=== PATIENT | female | born 1935 | race Caucasian/White ===

== ENCOUNTER 2016-12-08 11:52 | Emergency (ER) | payer MEDICARE, OTHER ==
[2016-12-08] MEDS ORDERED: ALBUTEROL NEB 2.5 MG/3 ML INH STA (12:34)
[2016-12-08] MEDS ORDERED: ALBUTEROL NEB 2.5 MG/3 ML INH ONE (12:44)
[2016-12-08] MEDS ORDERED: IOPAMIDOL-300 100 ML VIAL IVP ONE (15:17)
[2016-12-08] MEDS ORDERED: CLINDAMYCIN 150 MG CAPSULE PO STA (16:09)
[2016-12-08] MEDS ORDERED: AMOXICILLIN 250 MG CAPSULE PO STA (16:09)
[2016-12-08] MEDS ORDERED: CLINDAMYCIN 150 MG CAPSULE PO ONE (16:24)
[2016-12-08] MEDS ORDERED: AMOXICILLIN 250 MG CAPSULE PO ONE (16:25)
== END 2016-12-08 16:50 | disposition home or self-care (01) ==
DX: J18.9 Pneumonia, unspecified organism (principal); Z79.82 Long term (current) use of aspirin
CPT/HCPCS: 36415; 71020; 71260; 80053; 83690; 85025; 87275; 87276; 93005; 93010; 94640; 99283; 99284; A9270; J7613; Q9967

== ENCOUNTER 2017-03-24 09:32 | Day surgery (SDC) | payer MEDICARE, OTHER ==
[~2017-03-24 09:32] MED LIST: PHENYLEPHRINE 2.5% OPHTH 2 ML DROPS ONE
[2017-03-24] MEDS ORDERED: LACTATED RINGERS 500 ML IV ONE (10:10)
[2017-03-24] MEDS ORDERED: KETOROLAC 0.45% OPHTH DROPS OPTH ONE (10:11)
[2017-03-24] MEDS ORDERED: PROPARACAINE 0.5% OPHTH DROPS 15 ML OPTH ONE (10:11)
[2017-03-24] MEDS ORDERED: CYCLOPENTOLATE 1% OPHTH DROPS 2 ML OPTH ONE (10:11)
[2017-03-24] MEDS ORDERED: PHENYLEPHRINE 2.5% OPHTH 2 ML DROPS OPTH ONE (10:11)
[2017-03-24] MEDS ORDERED: PROPOFOL 1000 MG/100 ML IV ONE (10:56)
[2017-03-24] MEDS ORDERED: hydrALAZINE INJ 20 MG/ML VIAL IVP ONE (10:56)
[2017-03-24] MEDS ORDERED: LIDOCAINE-MPF 2% 5 ML VIAL IM ONE (10:56)
[2017-03-24] MEDS ORDERED: MIDAZOLAM 2 MG/2 ML VIAL IVP ONE (10:56)
== END 2017-03-24 09:33 | disposition home or self-care (01) ==
PROC: 08RJ3JZ Replacement of Right Lens with Synthetic Substitute, Percutaneous Approach (ICD-10-PCS; principal; 2017-03-24 11:00)
DX: H25.811 Combined forms of age-related cataract, right eye (principal); Z90.49 Acquired absence of other specified parts of digestive tract; F41.9 Anxiety disorder, unspecified; F32.9 Major depressive disorder, single episode, unspecified; Z79.82 Long term (current) use of aspirin; E66.9 Obesity, unspecified; K21.9 Gastro-esophageal reflux disease without esophagitis; E78.00 Pure hypercholesterolemia, unspecified; I10 Essential (primary) hypertension; M19.90 Unspecified osteoarthritis, unspecified site; Z68.30 Body mass index [BMI] 30.0-30.9, adult
CPT/HCPCS: 66984; A9270; V2632

== ENCOUNTER 2017-04-07 08:04 | Day surgery (SDC) | payer MEDICARE, OTHER ==
[~2017-04-07 08:04] MED LIST changes: +MIDAZOLAM 2 MG/2 ML VIAL IVP ONE
[2017-04-07] MEDS ORDERED: KETOROLAC 0.45% OPHTH DROPS OPTH ONE (08:24)
[2017-04-07] MEDS ORDERED: CYCLOPENTOLATE 1% OPHTH DROPS 2 ML OPTH ONE (08:24)
[2017-04-07] MEDS ORDERED: PHENYLEPHRINE 2.5% OPHTH 2 ML DROPS OPTH ONE (08:24)
[2017-04-07] MEDS ORDERED: PROPARACAINE 0.5% OPHTH DROPS 15 ML OPTH ONE ×2 (08:24→10:04)
[2017-04-07] MEDS ORDERED: LACTATED RINGERS 500 ML IV ONE (08:25)
[2017-04-07] MEDS ORDERED: CHONDR SULF/HYALURONATE SYRINGE IO ONE (10:03)
[2017-04-07] MEDS ORDERED: EPINEPHrine 1 MG/ML AMP IVP ONE (10:03)
[2017-04-07] MEDS ORDERED: BRIMONIDINE 0.2% OPHTH DROPS 5 ML OPTH ONE (10:03)
[2017-04-07] MEDS ORDERED: BSS/LIDOCAINE/EPINEPHRINE 1 ML SYRINGE IO ONE ×2 (10:04)
[2017-04-07] MEDS ORDERED: TRIAMCIN/MOXIFLOX/VANCO 1 ML VIAL IO ONE ×2 (10:04)
[2017-04-07] MEDS ORDERED: TIMOLOL 0.5% OPHTH DROPS OPTH ONE (10:04)
== END 2017-04-07 08:05 | disposition home or self-care (01) ==
PROC: 08RK3JZ Replacement of Left Lens with Synthetic Substitute, Percutaneous Approach (ICD-10-PCS; principal; 2017-04-07 09:30)
DX: H25.812 Combined forms of age-related cataract, left eye (principal); F41.9 Anxiety disorder, unspecified; F32.9 Major depressive disorder, single episode, unspecified; K21.9 Gastro-esophageal reflux disease without esophagitis; E66.9 Obesity, unspecified; M06.9 Rheumatoid arthritis, unspecified; Z83.3 Family history of diabetes mellitus; Z82.49 Family history of ischemic heart disease and other diseases of the circulatory system; Z90.49 Acquired absence of other specified parts of digestive tract; Z88.5 Allergy status to narcotic agent; Z79.82 Long term (current) use of aspirin; Z98.41 Cataract extraction status, right eye; Z96.1 Presence of intraocular lens; Z68.30 Body mass index [BMI] 30.0-30.9, adult
CPT/HCPCS: 66984; A9270; V2632

== ENCOUNTER 2017-09-08 10:29 | Outpatient (CLI) | payer MEDICARE, OTHER ==
[2017-09-08 11:09] LABS: BASOPHILS % (AUTO) 0.6 %; EOSINOPHILS # (AUTO) 0.2 10^3/uL (0.0-0.7); EOSINOPHILS % (AUTO) 3.5 %; HCT - HEMATOCRIT 36.6 % (37.0-47.0); HGB - HEMOGLOBIN 12.3 g/dL (12.0-16.0); LYMPHOCYTES # (AUTO) 0.9 10^3/uL (1.5-3.5); LYMPHOCYTES % (AUTO) 17.2 %; MEAN CORPUSCULAR HEMOGLOBIN 30.1 pg (27.0-31.0); MEAN CORPUSCULAR HGB CONC 33.6 g/dL (32.0-36.0); MEAN CORPUSCULAR VOLUME 89.5 fL (81.0-99.0); MEAN PLATELET VOLUME 7.5 fL (7.9-10.8); MONOCYTES # (AUTO) 0.4 10^3/uL (0.0-1.0); MONOCYTES % (AUTO) 8.3 %; NEUTROPHILS # (AUTO) 3.6 10^3/uL (1.5-6.6); NEUTROPHILS % (AUTO) 70.4 %; NUCLEATED RED BLOOD CELLS AUTO 0.1 /100WBC; RED BLOOD COUNT 4.09 10^6/uL (4.20-5.40); RED CELL DISTRIBUTION WIDTH 14.6 % (12.0-15.0); UNCORRECTED WHITE BLOOD COUNT 5.1 x10^3/uL; WHITE BLOOD COUNT 5.1 x10^3/uL (4.8-10.8)
[2017-09-08 11:41] LABS: ALBUMIN/GLOBULIN RATIO 1.8 (1.0-2.2); BILIRUBIN,TOTAL 0.6 mg/dL (0.2-1.0); CALCIUM 9.3 mg/dL (8.5-10.3); CREATININE 0.8 mg/dL (0.4-1.0); MAGNESIUM 1.9 mg/dL (1.7-2.8); POTASSIUM 4.3 mmol/L (3.5-5.0); TOTAL PROTEIN 6.7 g/dL (6.7-8.2)
[2017-09-08 12:51] LABS: PLATELET ESTIMATE, MANUAL NORMAL (130-450,000) (NORMAL)
== END 2017-09-08 10:30 | disposition home or self-care (01) ==
LOC: LAB 10:29
PROVIDERS: ATTEND Internal Medicine
DX: C34.00 Malignant neoplasm of unspecified main bronchus (principal)
CPT/HCPCS: 36415; 80053; 83735; 85025

== ENCOUNTER 2017-10-06 12:22 | Inpatient (IN) | payer MEDICARE, OTHER ==
[2017-10-06] MEDS ORDERED: SODIUM CHLORIDE 0.9% 1,000 ML IV ONE ×2 (12:39→15:11)
--- NOTE | 2017-10-06 12:46 | ED Physician Documentation ---
History of Present Illness - Stated complaint Stated Complaint: DIZZY - Chief complaint Chief Complaint: General - History obtained from History obtained from: Patient - History of Present Illness Timing: Other (82-year-old woman with diagnosis of lung cancer and around February of this year, few months ago had a lobectomy and is having chemotherapy now. She finished her third infusion on Tuesday and starting that day she has been very dizzy. It is a lightheadedness feeling like she needs to get down to the ground quickly. Last night in the middle the night she was on her way to get a drink of water and had a syncopal episode in the kitchen. She hit her head quite hard on the floor and also injured her right elbow. She has noted right- sided anterior chest pain with deep breathing ever since then. Is not associated with increased dyspnea or cough. She denies any pedal edema or calf pain. She has not been anemic with the chemotherapy but has had some issues with leukopenia.) Review of Systems Ten Systems: 10 systems reviewed and negative Constitutional: reports: Fatigue. denies: Fever, Chills, Myalgias Ears: denies: Loss of hearing, Ear pain Nose: denies: Rhinorrhea / runny nose, Congestion Cardiac: reports: Chest pain / pressure. denies: Palpitations, Pedal edema, Calf pain Respiratory: denies: Dyspnea, Cough, Hemoptysis, Wheezing GI: denies: Abdominal Pain Musculoskeletal: denies: Neck pain, Back pain Neurologic: reports: Syncope, Head injury, LOC. denies: Headache PD PAST MEDICAL HISTORY - Past Medical History Past Medical History: Yes Cardiovascular: Hypertension, High cholesterol, Murmur Respiratory: None Neuro: None Endocrine/Autoimmune: None GI: GERD : None HEENT: None Psych: None, Depression, Anxiety Musculoskeletal: Osteoarthritis, Rheumatoid arthritis Derm: None Other Past Medical History: Ca Lung diagnosed in February 2017 cancer removed and lobectomy on the left lung a couple months ago may 2017 only on her third chemo - Past Surgical History Past Surgical History: Yes General: Cholecystectomy, Hiatal hernia repair, Colonoscopy Ortho: Knee replacement, Spine surgery, Other HEENT: Cataracts, Tonsil/Adenoidectomy - Present Medications Home Medications: Ambulatory Orders Medication Instructions Recorded Confirmed Aspirin [Xavier] 325 mg PO ONCE 06/01/13 04/07/17 Atorvastatin Calcium 40 mg PO HS 06/01/13 04/07/17 Celecoxib [Celebrex] 200 mg PO DAILY 06/01/13 04/07/17 Esomeprazole Magnesium [Nexium] 20 mg PO DAILY PRN 06/01/13 04/07/17 Gabapentin 300 mg PO QID 06/01/13 04/07/17 Pramipexole [Mirapex] 0.125 mg PO HS 06/01/13 04/07/17 Sertraline [Zoloft] 100 mg PO DAILY 06/01/13 04/07/17 Ubidecarenone/Vitamin E Mixed 500 mg PO DAILY 12/08/16 04/07/17 [[id number] E 100 mg-10 Unit Sfg] Telmisartan [Micardis] 40 mg PO DAILY 03/23/17 04/07/17 - Allergies Allergies/Adverse Reactions: Allergies Allergy/AdvReac Type Severity Reaction Status Date / Time niacin AdvReac Severe Itching Verified 06/01/13 13:11 - Living Situation Living Situation: reports: With spouse/s.o. - Social History Does the pt smoke?: No Smoking Status: Never smoker Does the pt drink ETOH?: No Does the pt have substance abuse?: No - Family History Family history: reports: Non contributory - Immunizations Immunizations are current?: Yes - POLST Patient has POLST: No PD ED PE NORMAL - Vitals Vital signs reviewed: Yes (hypoxemia) - General General: Alert and oriented X 3, No acute distress - HEENT HEENT: PERRL, EOMI - Neck Neck: Supple, no meningeal sign, No bony TTP - Cardiac Cardiac: RRR, No murmur - Respiratory Respiratory: Other (Diminished at the left base, some crackles at the right base.) - Abdomen Abdomen: Soft, Non tender - Back Back: No CVA TTP, No spinal TTP - Extremities Extremities: No edema, No calf tenderness / cord, Other (Bruising over the lateral epicondyle of the right elbow, limited range of motion or tenderness there. She has a lot of swelling over the wrist on the right and difficulty with range of motion there as well as tenderness and swelling over the third PIP , also tender and limited range of motion there.) - Neuro Neuro: Alert and oriented X 3, Normal speech Eye Opening: Spontaneous Motor: Obeys Commands Verbal: Oriented GCS Score: 15 - Psych Psych: Normal mood, Normal affect Results - Vitals Vitals: Vital Signs - 24 hr 10/06/17 10/06/17 10/06/17 12:27 14:13 14:14 Temperature 36.5 C Heart Rate 73 67 Respiratory 20 16 Rate Blood Pressure 125/64 119/43 L O2 Saturation 88 L 88 L 93 10/06/17 14:32 Temperature Heart Rate 70 Respiratory 21 Rate Blood Pressure 113/91 H O2 Saturation 93 Oxygen O2 Source Room air Oxygen Flow Rate 2 - EKG (time done) 1230 Rate: Rate (enter#) (73) Rhythm: NSR [place]: RAD Intervals: Normal SC Ischemia: T wave inversion (I/L new since 12/08/16). No: ST elevation c/w ischemia Computer interpretation: Agree with computer - Labs Labs: Laboratory Tests 10/06/17 10/06/17 10/06/17 12:42 12:42 12:42 WBC 41.8 H* RBC 3.72 L Hgb 11.2 L Hct 33.8 L MCV 90.8 MCH 30.1 MCHC 33.1 RDW 17.2 H Plt Count 152 MPV 7.7 L Neut # COMMUNITY HEALTH ADVISOR Lymph # COMMUNITY HEALTH ADVISOR [place] # COMMUNITY HEALTH ADVISOR Eos # COMMUNITY HEALTH ADVISOR Baso # COMMUNITY HEALTH ADVISOR Absolute Nucleated RBC COMMUNITY HEALTH ADVISOR Total Counted 100 Band Neuts % (Manual) 4 Nucleated RBC % COMMUNITY HEALTH ADVISOR Neutrophils # (Manual) 40.5 H Monocytes # (Manual) 1.3 H Differential Comment MANUAL DIFFERENTIAL WBC Morphology 1+ TOXIC GRANULATION PT 12.0 INR 1.1 APTT 23.3 L Sodium 134 L Potassium 3.2 L Chloride 97 L Carbon Dioxide 24 Anion Gap 13.0 BUN 34 H Creatinine 1.7 H Estimated GFR (MDRD) 29 L Glucose 139 H Lactic Acid Calcium 9.1 Total Bilirubin 0.8 AST 25 ALT 20 Alkaline Phosphatase 87 Troponin I Total Protein 6.5 L Albumin 3.9 Globulin 2.6 Albumin/Globulin Ratio 1.5 Lipase 15 L 10/06/17 10/06/17 12:42 14:25 WBC RBC Hgb Hct MCV MCH MCHC RDW Plt Count MPV Neut # Lymph # [place] # Eos # Baso # Absolute Nucleated RBC Total Counted Band Neuts % (Manual) Nucleated RBC % Neutrophils # (Manual) Monocytes # (Manual) Differential Comment WBC Morphology PT INR APTT Sodium Potassium Chloride Carbon Dioxide Anion Gap BUN Creatinine Estimated GFR (MDRD) Glucose Lactic Acid 1.3 Calcium Total Bilirubin AST ALT Alkaline Phosphatase Troponin I 0.06 Total Protein Albumin Globulin Albumin/Globulin Ratio Lipase - Rads (name of study) X-rays of the right elbow, wrist, and hand Radiology: EMP read contemporaneously (Degenerative changes without fracture) PD MEDICAL DECISION MAKING - ED course ED course: 82-year-old undergoing chemotherapy with syncope last night. She was hypoxic but wears home oxygen at home. Suspicion was high for PE but this is not present on her CT, she does have nonspecific pneumonitis. She does have a leukocytosis that is quite impressive but it sounds like she got an injection to increase her white blood cell count a couple of days ago, there is no evidence of infection. Urine is pending on admission. Her lactate is reassuring. Spoke with Dr. Huerta for admission at 3:05 PM. Departure - Departure Disposition: ED Place in Observation Clinical Impression: Hypoxemia Syncope Qualifiers: Syncope type: unspecified Qualified Code(s): R55 - Syncope and collapse Leukocytosis Qualifiers: Leukocytosis type: leukemoid reaction Qualified Code(s): D72.823 - Leukemoid reaction Lung cancer Qualifiers: Laterality: left Lung location: lower lobe of lung Qualified Code(s): C34.32 - Malignant neoplasm of lower lobe, left bronchus or lung Head injury Qualifiers: Encounter type: initial encounter Qualified Code(s): S09.90XA - Unspecified injury of head, initial encounter Chest pain Qualifiers: Chest pain type: precordial pain Qualified Code(s): R07.2 - Precordial pain Condition: Stable
[2017-10-06 12:53] LABS: BASOPHILS % (AUTO) 0.9 %; EOSINOPHILS % (AUTO) 0.1 %; HCT - HEMATOCRIT 33.8 % (37.0-47.0); HGB - HEMOGLOBIN 11.2 g/dL (12.0-16.0); LYMPHOCYTES % (AUTO) 1.3 %; MEAN CORPUSCULAR HEMOGLOBIN 30.1 pg (27.0-31.0); MEAN CORPUSCULAR HGB CONC 33.1 g/dL (32.0-36.0); MEAN CORPUSCULAR VOLUME 90.8 fL (81.0-99.0); MEAN PLATELET VOLUME 7.7 fL (7.9-10.8); MONOCYTES % (AUTO) 2.1 %; NEUTROPHILS % (AUTO) 95.6 %; RED BLOOD COUNT 3.72 10^6/uL (4.20-5.40); RED CELL DISTRIBUTION WIDTH 17.2 % (12.0-15.0); UNCORRECTED WHITE BLOOD COUNT 41.8 x10^3/uL
[2017-10-06 12:54] LABS: WHITE BLOOD COUNT 41.8 x10^3/uL (4.8-10.8)
[2017-10-06 13:01] LABS: INR 1.1 (0.8-1.2)
[2017-10-06 13:08] LABS: ALBUMIN/GLOBULIN RATIO 1.5 (1.0-2.2); BILIRUBIN,TOTAL 0.8 mg/dL (0.2-1.0); CALCIUM 9.1 mg/dL (8.5-10.3); CREATININE 1.7 mg/dL (0.4-1.0); POTASSIUM 3.2 mmol/L (3.5-5.0); TOTAL PROTEIN 6.5 g/dL (6.7-8.2)
[2017-10-06 13:10] LABS: PARTIAL THROMBOPLASTIN TIME 23.3 secs (24.9-33.3)
[2017-10-06 13:15] LABS: BAND NEUTROPHILS % (MANUAL) 4 %; NEUTROPHILS % (MANUAL) 93 %; TOTAL CELLS COUNTED 100
[2017-10-06 13:16] LABS: NP AUTO DIFFERENTIAL? YES
[2017-10-06 13:17] LABS: NP MAN DIFFERENTIAL? NO
[2017-10-06] MEDS ORDERED: IOPAMIDOL-300 100 ML VIAL ONE (13:33)
--- NOTE | 2017-10-06 13:49 | XRAY Preliminary Report ---
Exam: XR HAND 3 VIEW RT IMPRESSION: 1. Soft tissue swelling. 2. Marked osteoarthritis. [facility] SITE ID: [id number]
--- NOTE | 2017-10-06 13:50 | XRAY Preliminary Report ---
Exam: XR ELBOW 3 VIEW RT IMPRESSION: No acute disease. [facility] SITE ID: [id number]
--- NOTE | 2017-10-06 13:52 | XRAY Report ---
EXAM: RIGHT HAND RADIOGRAPHY EXAM DATE: 10/06/2017 01:14 PM. CLINICAL HISTORY: Hand/wrist/elbow injury p syncope. COMPARISON: None. TECHNIQUE: 3 views. FINDINGS: Bones: Osteopenia. No definite fracture or other bone lesion. Joints: Marked degenerative changes in the DIP joints and first CMC joint, with moderate to marked rico bluxation of the first CMC joint. Mild degenerative changes at other levels. No definite erosions. Soft Tissues: Mild soft tissue swelling. IMPRESSION: 1. Soft tissue swelling. 2. Marked osteoarthritis. [facility] Referring Provider Line: [phone] SITE ID: [id number]
--- NOTE | 2017-10-06 13:52 | XRAY Preliminary Report ---
Exam: XR WRIST 3 VIEW RT IMPRESSION: 1. Mild soft tissue swelling. 2. Marked degenerative joint disease with radiocarpal calcific periarthritis. [facility] SITE ID: [id number]
--- NOTE | 2017-10-06 13:53 | XRAY Report ---
EXAM: RIGHT ELBOW RADIOGRAPHY EXAM DATE: 10/06/2017 01:14 PM. CLINICAL HISTORY: Hand/wrist/elbow injury p syncope. COMPARISON: None. TECHNIQUE: 3 views. FINDINGS: Bones: Osteopenia. No definite fracture or other bone lesion. Joints: Normal. No effusion. No subluxation. Soft Tissues: Unremarkable. IMPRESSION: No acute disease. [facility] Referring Provider Line: [phone] SITE ID: [id number]
--- NOTE | 2017-10-06 13:55 | XRAY Report ---
EXAM: RIGHT WRIST RADIOGRAPHY EXAM DATE: 10/06/2017 01:14 PM. CLINICAL HISTORY: Hand/wrist/elbow injury p syncope. COMPARISON: None. TECHNIQUE: 3 views. FINDINGS: Bones: Osteopenia. No fractures or bone lesions. Joints: Marked degenerative changes in the first CMC joint with subluxation. Moderate to marked degen erative changes at the navicular multangular level. Soft Tissues: Prominent soft tissue calcifications at the radiocarpal level. Mild soft tissue swellin g. IMPRESSION: 1. Mild soft tissue swelling. 2. Marked degenerative joint disease with radiocarpal calcific periarthritis. [facility] Referring Provider Line: [phone] SITE ID: [id number]
--- NOTE | 2017-10-06 14:10 | CT Preliminary Report ---
Exam: CT HEAD W/O IMPRESSION: 1. Negative for intracranial hemorrhage, mass effect. 2. Mild nonfocal white matter disease. Nonspecific but most commonly attributed to chronic microangio ruddy. [facility] SITE ID: [id number]
[2017-10-06] MEDS ORDERED: POTASSIUM BICARB 25 MEQ TABLET PO STA (14:11)
--- NOTE | 2017-10-06 14:13 | CT Report ---
EXAM: CT HEAD EXAM DATE: 10/06/2017 02:00 PM. CLINICAL HISTORY: Syncope with head inj. COMPARISON: None. TECHNIQUE: Multiaxial CT images were obtained from the foramen magnum to the vertex. Reformats: Coron al. IV contrast: None. In accordance with CT protocol optimization, one or more of the following dose reduction techniques w ere utilized for this exam: automated exposure control, adjustment of mA and/or KV based on patient s ize, or use of iterative reconstructive technique. FINDINGS: Parenchyma: There is mild periventricular white matter hypodensity. Negative for intracranial acute h emorrhage. No midline shift or mass effect. Extraaxial Spaces: No subdural or epidural collections identified. Ventricles: Normal in size and position. Sinuses and Orbits: Imaged paranasal sinuses, orbits, and mastoids show no significant abnormality. Bones: No evidence of fracture or calvarial defect. Other: None. IMPRESSION: 1. Negative for intracranial hemorrhage, mass effect. 2. Mild nonfocal white matter disease. Nonspecific but most commonly attributed to chronic microangio ruddy. [facility] Referring Provider Line: [phone] SITE ID: [id number]
[2017-10-06] MEDS ORDERED: POTASSIUM BICARB 25 MEQ TABLET PO ONE ×2 (14:22→16:58)
--- NOTE | 2017-10-06 14:26 | CT Preliminary Report ---
Exam: CT CHEST ANGIO (PE) IMPRESSION: 1. Negative for acute pulmonary embolism. 2. No thoracic aortic aneurysm or dissection. 3. Interval increase in diffuse interstitial lung disease with groundglass opacity and low lung volum e. Differential considerations include chronic hypersensitivity pneumonitis, acute alveolitis, viral pneumonia, drug reaction, or eosinophilic pneumonia. [facility] SITE ID: [id number]
--- NOTE | 2017-10-06 14:28 | CT Report ---
EXAM: CT ANGIOGRAM CHEST EXAM DATE: 10/06/2017 02:10 PM. CLINICAL HISTORY: Chest pain, syncope, lung CA s/p L lobectomy. COMPARISON: 12/08/2016. TECHNIQUE: Routine helical imaging was performed through the chest in the pulmonary arterial phase. I V Contrast: 40 cc Isovue-300 IV. Reconstructions: Coronal 3-D MIP reconstructions.Sagittal and negrete l. In accordance with CT protocol optimization, one or more of the following dose reduction techniques w ere utilized for this exam: automated exposure control, adjustment of mA and/or KV based on patient s ize, or use of iterative reconstructive technique. FINDINGS: Pulmonary Arteries: Diagnostic quality: Adequate through the segmental arteries. Negative for acute pulmonary embolism. The main pulmonary artery is enlarged but appears unchanged in size at 3.3 cm in diameter. Lungs/Pleura: There is a diffuse pattern of course pulmonary reticulation associated with groundglass opacity. Lung volumes are low. There mild peripheral areas of traction bronchiectasis. There is no p leural effusion. Mediastinum: There is cardiomegaly. There is no pericardial effusion. Thoracic Aorta: There is [id number] atherosclerotic calcification without aneurysm or dissectio n. Upper Abdomen: Unremarkable. Other: None. IMPRESSION: 1. Negative for acute pulmonary embolism. 2. No thoracic aortic aneurysm or dissection. 3. Interval increase in diffuse interstitial lung disease with groundglass opacity and low lung volum e. Differential considerations include chronic hypersensitivity pneumonitis, acute alveolitis, viral pneumonia, drug reaction, or eosinophilic pneumonia. [facility] Referring Provider Line: [phone] SITE ID: [id number]
[2017-10-06 15:13] LABS: BILIRUBIN,URINE NEGATIVE (NEGATIVE)
[2017-10-06 15:17] LABS: UA CHARGE (STRIP ONLY) YES; UR CULTURE IF IND NOT INDICATED
[2017-10-06] MEDS: SODIUM CHLORIDE 0.9% 1,000 ML IV SCH (18:11)
--- NOTE | 2017-10-06 18:44 | HISTORY & PHYSICAL EXAMINATION ---
Chief Complaint - Chief Complaint Chief Complaint: syncope and collapse History of Present Illness - Admitted From Admitted From:: ED - History Obtained From Records Reviewed: yes History obtained from: patient, family, ED Exam Limitations: none - History of Present Illness HPI Comment/Other: Leisa Grullon is an 82 year old with a past medical history of HTN, hyperlipidemia, GERD, heart murmur, depression, anxiety, osteoarthritis, RA and lung CA since 2016- now status post lobectomy, who came to the ED today after a syncopal episode. Patient is currently undergoing chemotherapy. She finished her third infusion on Tuesday and starting that day she has been profoundly dizzy. Last night in the middle the night she was on her way to get a drink of water and had a syncopal episode in the kitchen. She hit her head on the floor and also injured her right elbow. She has noted right-sided anterior chest pain with deep breathing since that episode. Is not associated with increased dyspnea or cough. She denies any pedal edema or calf pain. She has not been anemic with the chemotherapy but has had some issues with leukopenia. Plan to admit to hospitalist service for further work up of pneumonia, syncope and collapse and coordination of care with Oncology. History - Past Medical History Cardiovascular: reports: Hypertension, High cholesterol, Murmur Respiratory: reports: None Neuro: reports: None Endocrine/Autoimmune: reports: None GI: reports: GERD : reports: None HEENT: reports: None Psych: reports: None, Depression, Anxiety Musculoskeletal: reports: Osteoarthritis, Rheumatoid arthritis Derm: reports: None MRSA Hx?: No Other Past Medical History: Ca Lung diagnosed in February 2017 cancer removed and lobectomy on the left lung a couple months ago may 2017 only on her third chemo - Past Surgical History General: reports: Cholecystectomy, Hiatal hernia repair, Colonoscopy Ortho: reports: Knee replacement, Spine surgery, Other HEENT: reports: Cataracts, Tonsil/Adenoidectomy - Family & Social History Family History: Mother: , CAD, Diabetes, Type 2, Father: , CAD, Sister: , CAD, Cancer, Brother: , CAD Living arrangement: At home Living Situation: With spouse/s.o. - Substance History Use: Uses substance without health or social issues: NONE Abuse: Recurrent use of substance despite neg consequences: NONE Dependence: Experiences withdrawal or developed tolerances: NONE - POLST Patient has POLST: No POLST Status: Full Code Meds/Allgy - Home Medications Home Medications: Ambulatory Orders Medication Instructions Recorded Confirmed Atorvastatin Calcium 40 mg PO QPM 06/01/13 10/06/17 Gabapentin 300 mg PO BID 06/01/13 10/06/17 Pramipexole [Mirapex] 0.125 mg PO QPM 06/01/13 10/06/17 Sertraline [Zoloft] 100 mg PO DAILY 06/01/13 10/06/17 Telmisartan [Micardis] 40 mg PO DAILY 03/23/17 10/06/17 Cholecalciferol [Vitamin D3] 5,000 units PO DAILY 10/06/17 10/06/17 Ubidecarenone [Co Q-10] 400 mg PO DAILY 10/06/17 10/06/17 - Allergies Allergies/Adverse Reactions: Allergies Allergy/AdvReac Type Severity Reaction Status Date / Time niacin AdvReac Severe Itching Verified 06/01/13 13:11 Review of Systems - Constitutional Constitutional: reports: Weakness - Eyes Eyes: reports: Corrective lenses - Cardiovascular Cariovascular: reports: Syncope - Respiratory Respiratory: reports: SOB with exertion, Pleuritic pain - Neurological Neurological: reports: Dizziness - Psychiatric Psychiatric: reports: Depression, Anxiety Exam - Vital Signs Reviewed Vital Signs: Yes Vital Signs: Vital Signs x48h Temp Pulse Pulse Resp BP BP Pulse Ox 10/06/17 17:00 36.6 C 71 20 134/50 H 95 10/06/17 16:49 88 14 110/40 L 94 - Physical Exam General Appearance: positive: No acute distress, Alert Eyes Bilateral: positive: Normal inspection, PERRL, No lid inflammation, Conjunctivae nml ENT: positive: ENT inspection nml, Pharynx nml, Dry mucous membranes Neck: positive: Nml inspection, Thyroid nml, No JVD, Trachea midline Respiratory: positive: Chest non-tender, No respiratory distress, Other (home oxygen) Cardiovascular: positive: Regular rate & rhythm, Systolic murmur Peripheral Pulses: positive: 2+ Abdomen: positive: Non-tender, No organomegaly, Nml bowel sounds, No distention Back: positive: Nml inspection Skin: positive: Color nml, No rash, Warm, Dry Extremities: positive: Non-tender, Full ROM, Nml appearance, No pedal edema Neurologic/Psychiatric: positive: Oriented x3, CN's nml (2-12), Motor nml, Sensation nml, Mood/affect nml Reflexes: Bicep (R): 2+, Bicep (L): 2+ Conclusion/Plan - Lab Results Lab results reviewed: Yes Fish Bones: 10/07/17 05:46 10/07/17 05:46 - Diagnostic Imaging Results Diagnostic Imaging Results: positive: Prelim report reviewed Diagnostic Imaging Results Comments: CTA Chest IMPRESSION 10/06/2017: 1. Negative for acute pulmonary embolism. 2. No thoracic aortic aneurysm or dissection. 3. Interval increase in diffuse interstitial lung disease with groundglass opacity and low lung volume. Differential considerations include chronic hypersensitivity pneumonitis, acute alveolitis, viral pneumonia, drug reaction, or eosinophilic pneumonia. - EKG Results EKG Interpreted Independently: Yes EKG Findings: sinus rhythm Issues/Core Measures - Anticipated LOS Anticipated Stay Length: 2 or more midnights - Issues Hospital Issues and Management Plan: Syncope and collapse: Patient fell, lost consiousness with injury to head and right elbow. Plan: Full cardiac work up including echocardiogram, carotid dopplers, orthostatic B/P, and labs. Lung cancer: Patient recieves oncology care through [facility]. Plan: Send records of this stay to oncology team. Status post partial right Lobectomy: Patient has had no previous post-op complications. Plan: Continue to monitor. Chest CT in ER. Dizziness: This symptoms has improved since admission after IVFs. Plan: We will continue to monitor vital signs, labs and continue with cardiac work up. Pneumonia: Per chest CT report, likely pneumonia. Crackles in bilateral lung díaz. Plan: Start antibiotic therapy. Incentive spirometry and encourage mobility if tolerated. - DVT/VTE - Prophylaxis VTE/DVT Device ordered at admit?: Yes VTE/DVT Prophylaxis med ordered at admit?: No Not Ordered - Medical Reason: Contraindicated (platelet counts low) - Stroke - Rehab Assessment Rehab services assessment to be ordered?: Yes - AMI - Statin at Admit Aspirin Prescribed on Admit: Yes
[2017-10-06] MEDS ORDERED: PIPERACILLIN/TAZOBACTAM 3.375 GM in SODIUM CHLORIDE 0.9% MINIBAG 100 ML IV SCH (20:00)
[2017-10-06] MEDS: PRAMIPEXOLE 0.25 MG TABLET PO SCH (20:50)
[2017-10-06] MEDS: GABAPENTIN 300 MG CAPSULE PO SCH (20:50)
[2017-10-06] MEDS: POTASSIUM CHLORIDE 20 MEQ TABLET PO SCH (20:50)
[2017-10-06] MEDS: SODIUM CHLORIDE FLUSH 0.9% 10 ML SYRINGE IVP SCH (20:53)
[2017-10-06] MEDS: PIPERACILLIN/TAZOBACTAM 3.375 GM in SODIUM CHLORIDE 0.9% MINIBAG 100 ML IV SCH (23:45)
--- NOTE | 2017-10-07 00:27 | Ultrasound Preliminary Report ---
Exam: US CAROTID DOPPLER COMPLETE IMPRESSION: 1. Tortuous vessels with bilateral carotid plaquing but no significant stenosis. 2. Antegrade flow in both vertebral arteries. Validated velocity measurements with angiographic measurements and velocity criteria are extrapolated from diameter data as defined by the Society of Radiologists in Ultrasound Consensus Conference Radi ology 2003; 229;340-346. [facility] SITE ID: [id number]
--- NOTE | 2017-10-07 00:38 | Ultrasound Report ---
EXAM: CAROTID DOPPLER ULTRASOUND EXAM DATE: 10/07/2017 12:01 AM. CLINICAL HISTORY: Syncope. COMPARISON: None. TECHNIQUE: Real-time sonographic vascular imaging was performed by the associate art director through the [place] arterial system with a linear transducer utilizing color-flow, Doppler flow and spectral analysis. Multiple customer counter representative static images were saved for review. FINDINGS: Technically difficult exam due to tortuous vessels. Bilateral carotid plaquing with no sign ificant stenosis. Antegrade flow in both vertebral arteries. VELOCITIES: Right: CCA Prox: PSV 152 cm/sec. CCA Dist: PSV 89.2 cm/sec, EDV 16.6 cm/sec. ICA Prox: PSV 82.0 cm/sec, EDV 15.9 cm/sec. ICA Mid: PSV 77.2 cm/sec, EDV 23.0 cm/sec. ICA Dist: PSV 91.1 cm/sec, EDV 22.3 cm/sec. ECA: PSV 62.7 cm/sec. Vertebral Artery: PSV 27.4 cm/sec. RVA flow direction: Antegrade. Left: CCA Prox: PSV 103 cm/sec. CCA Dist: PSV 79.3 cm/sec, EDV 12.5 cm/sec. ICA Prox: PSV 52.9 cm/sec, EDV 15.3 cm/sec. ICA Mid: PSV 65.8 cm/sec, EDV 20.9 cm/sec. ICA Dist: PSV 103.6 cm/sec, EDV 28 cm/sec. ECA: PSV 84.1 cm/sec. Vertebral Artery: PSV 58.7 cm/sec. LVA flow direction: Antegrade. Other: None. IMPRESSION: 1. Tortuous vessels with bilateral carotid plaquing but no significant stenosis. 2. Antegrade flow in both vertebral arteries. Validated velocity measurements with angiographic measurements and velocity criteria are extrapolated from diameter data as defined by the Society of Radiologists in Ultrasound Consensus Conference Radi ology 2003; 229;340-346. [facility] Referring Provider Line: [phone] SITE ID: [id number]
[2017-10-07] MEDS: SODIUM CHLORIDE 0.9% 1,000 ML IV SCH ×3 (01:58→21:56)
[2017-10-07] MEDS: SODIUM CHLORIDE FLUSH 0.9% 10 ML SYRINGE IVP SCH ×3 (05:34→21:56)
[2017-10-07] MEDS: SODIUM CHLORIDE FLUSH 0.9% 10 ML SYRINGE IVP PRN ×2 (05:34→08:40)
[2017-10-07 06:03] LABS: ALBUMIN/GLOBULIN RATIO 1.3 (1.0-2.2); BILIRUBIN,TOTAL 0.8 mg/dL (0.2-1.0); CALCIUM 8.3 mg/dL (8.5-10.3); CREATININE 1.3 mg/dL (0.4-1.0); POTASSIUM 3.4 mmol/L (3.5-5.0); TOTAL PROTEIN 5.4 g/dL (6.7-8.2); URIC ACID 5.2 mg/dL (2.6-7.2)
[2017-10-07 06:12] LABS: BASOPHILS % (AUTO) 0.2 %; EOSINOPHILS % (AUTO) 0.5 %; HCT - HEMATOCRIT 29.1 % (37.0-47.0); HGB - HEMOGLOBIN 9.7 g/dL (12.0-16.0); LYMPHOCYTES % (AUTO) 2.8 %; MEAN CORPUSCULAR HEMOGLOBIN 30.6 pg (27.0-31.0); MEAN CORPUSCULAR HGB CONC 33.2 g/dL (32.0-36.0); MEAN CORPUSCULAR VOLUME 92.2 fL (81.0-99.0); MONOCYTES % (AUTO) 1.6 %; NEUTROPHILS % (AUTO) 94.9 %; RED BLOOD COUNT 3.16 10^6/uL (4.20-5.40); RED CELL DISTRIBUTION WIDTH 17.4 % (12.0-15.0); UNCORRECTED WHITE BLOOD COUNT 24.5 x10^3/uL; WHITE BLOOD COUNT 24.5 x10^3/uL (4.8-10.8)
[2017-10-07 06:29] LABS: BAND NEUTROPHILS % (MANUAL) 12 %; EOSINOPHILS % (MANUAL) 1 %; LYMPHOCYTES % (MANUAL) 2 %; NEUTROPHILS % (MANUAL) 82 %; TOTAL CELLS COUNTED 100
[2017-10-07 06:30] LABS: NP AUTO DIFFERENTIAL? YES; NP MAN DIFFERENTIAL? NO; PLATELET ESTIMATE, MANUAL DECREASED (<130,000) (NORMAL)
[2017-10-07] MEDS: POLYETHYLENE GLYCOL 3350 17 GM PACKET PO SCH ×2 (08:07→08:38)
--- NOTE | 2017-10-07 08:27 | PROVIDER PROGRESS NOTE ---
Subjective - Prog Note Date Prog Note Date: 10/07/17 Prog Note Time: 08:26 - Subjective Pt reports feeling: Improved Subjective: Leisa has no complaints today except she is a little "behind" with her normal bowel pattern and feeling fullness in abdomen. She denies SOB, chest pain, N/V , or new cough. , Jean-Claude was at bedside. Current Medications - Current Medications Current Medications: Active Medications Generic Name Dose Route Start Last Admin Trade Name Freq PRN Reason Stop Dose Admin Docusate Sodium 250 - 500 mg 10/07/17 09:00 Colace 250mg Capsule PO DAILY CY Gabapentin 300 mg 10/06/17 21:00 10/06/17 20:50 Neurontin PO 300 mg BID CY Administration Sodium Chloride 1,000 mls @ 100 mls/hr 10/06/17 17:00 10/07/17 01:58 Normal Saline 0.9% IV 100 mls/hr .Q10H CY Administration Piperacillin Sod/Tazobactam 100 mls @ 25 mls/hr 10/07/17 00:00 10/07/17 04:13 Sod 3.375 gm/ Sodium Chloride IV Infused Q8H CY Infusion Polyethylene Glycol 17 gm 10/07/17 09:00 10/07/17 08:07 Miralax PO Not Given DAILY CY Potassium Chloride 20 meq 10/06/17 19:00 10/06/17 20:50 K-Dur PO 20 meq DAILYWM CY Administration Pramipexole Dihydrochloride 0.125 mg 10/06/17 21:00 10/06/17 20:50 Mirapex PO 0.125 mg QPM CY Administration Senna 8.6 - 17.2 mg 10/07/17 09:00 Senokot PO DAILY CY Sertraline HCl 100 mg 10/07/17 09:00 Zoloft PO DAILY CY Sodium Chloride 10 ml 10/06/17 16:16 10/07/17 05:34 Normal Saline Flush 0.9% IVP 10 ml PRN PRN Administration NEEDED PER PROVIDER ORDERS Sodium Chloride 10 ml 10/06/17 22:00 10/07/17 05:34 Normal Saline Flush 0.9% IVP 10 ml Q8HR CY Administration Atorvastatin Calcium 40 mg PO QPM 06/01/13 Gabapentin 300 mg PO BID 06/01/13 Pramipexole [Mirapex] 0.125 mg PO QPM 06/01/13 Sertraline [Zoloft] 100 mg PO DAILY 06/01/13 Telmisartan [Micardis] 40 mg PO DAILY 03/23/17 Cholecalciferol [Vitamin D3] 5,000 units PO DAILY 10/06/17 Ubidecarenone [Co Q-10] 400 mg PO DAILY 10/06/17 Objective - Vital Signs/Intake & Output Reviewed Vital Signs: Yes Vital Signs: Vital Signs x48h Temp Pulse Resp BP Pulse Ox 10/07/17 08:16 36.8 C 62 18 123/51 L 92 10/07/17 05:25 37.0 C 61 18 122/55 L 95 Intake & Output: Intake & Output 10/04/17 10/05/17 10/06/17 10/07/17 23:59 23:59 23:59 23:59 Intake Total 1550 1200 Balance 1550 1200 - Objective General Appearance: positive: No acute distress, Alert, Mild distress Eyes Bilateral: positive: Normal inspection, PERRL, EOMI ENT: positive: ENT inspection nml, Pharynx nml, No signs of dehydration Neck: positive: Nml inspection, Thyroid nml, No JVD, Trachea midline Respiratory: positive: Chest non-tender, No respiratory distress, Rhonchi ( Crackles bilateral lower lobes.) - Lab Results Fish Bones: 10/07/17 05:46 10/07/17 05:46 Other Labs: Lab Results x24hrs 10/07/17 10/07/17 10/06/17 Range/Units 05:46 05:46 23:10 WBC 24.5 H (4.8-10.8) x10^3/uL RBC 3.16 L (4.20-5.40) 10^6/uL Hgb 9.7 L (12.0-16.0) g/dL Hct 29.1 L (37.0-47.0) % MCV 92.2 (81.0-99.0) fL MCH 30.6 (27.0-31.0) pg MCHC 33.2 (32.0-36.0) g/dL RDW 17.4 H (12.0-15.0) % Plt Count 108 L (130-450) 10^3/uL MPV 8.0 (7.9-10.8) fL Neut # Not Reportable Lymph # Not Reportable Curry # Not Reportable Eos # Not Reportable Baso # Not Reportable Absolute Nucleated RBC Not Reportable Total Counted 100 Band Neuts % (Manual) 12 H (0 - 10) % Nucleated RBC % Not Reportable Neutrophils # (Manual) 23.0 H (1.5-6.6) 10^3/uL Lymphocytes # (Manual) 0.5 L (1.5-3.5) 10^3/uL Monocytes # (Manual) 0.7 (0.0-1.0) 10^3/uL Eosinophils # (Manual) 0.2 (0-0.7) 10^3/uL Differential Comment MANUAL DIFFERENTIAL Platelet Estimate DECREASED (<130,000) (NORMAL) RBC Morph Micro Appear NORMAL APPEARANCE (NORMAL) Sodium 138 (135-145) mmol/L Potassium 3.4 L (3.5-5.0) mmol/L Chloride 102 (101-111) mmol/L Carbon Dioxide 27 (21-32) mmol/L Anion Gap 9.0 (6-13) BUN 26 H (6-20) mg/dL Creatinine 1.3 H (0.4-1.0) mg/dL Estimated GFR (MDRD) 39 L (>89) Glucose 100 (70-100) mg/dL Uric Acid 5.2 (2.6-7.2) mg/dL Calcium 8.3 L (8.5-10.3) mg/dL Total Bilirubin 0.8 (0.2-1.0) mg/dL AST 17 (10-42) IU/L ALT 15 (10-60) IU/L Alkaline Phosphatase 71 (42-121) IU/L Troponin I 0.06 (<0.49) ng/mL Total Protein 5.4 L (6.7-8.2) g/dL Albumin 3.1 L (3.2-5.5) g/dL Globulin 2.3 (2.1-4.2) g/dL Albumin/Globulin Ratio 1.3 (1.0-2.2) - Diagnostic Imaging Diagnostic Imaging Comments: Carotid US 10/06/17: FINDINGS: Technically difficult exam due to tortuous vessels. Bilateral carotid plaquing with no significant stenosis. Antegrade flow in both vertebral arteries. Assessment/Plan - Problem List (1) Syncope Impression: Patient had a fall at home prior to admission when she struck her head on the floor and bruised her right elbow. Plan: Cardiac work up including troponin, echocardiogram, carotid US, and labs. Qualifiers: Syncope type: unspecified Qualified Code(s): R55 - Syncope and collapse (2) Lung cancer Impression: Patient currently recieves treatment at [facility], but wishes to transfer care to our [facility] [place] since she lives close by in [place]. Plan: Continued care. Chemotherapy on hold for now. Qualifiers: Laterality: left Lung location: lower lobe of lung Qualified Code(s): C34.32 - Malignant neoplasm of lower lobe, left bronchus or lung (5) Pneumonia Impression: CT chest on admission was completed which showed likely pneumonia. Plan: IV antibiotics, home oxygen, BC x2, urine cx and sputum cx. Qualifiers: Pneumonia type: due to unspecified organism Laterality: bilateral Lung location: lower lobe of lung Qualified Code(s): J18.9 - Pneumonia, unspecified organism
[2017-10-07] MEDS: GABAPENTIN 300 MG CAPSULE PO SCH ×2 (08:39→21:54)
[2017-10-07] MEDS: DOCUSATE SODIUM 250 MG CAPSULE PO SCH (08:39)
[2017-10-07] MEDS: POTASSIUM CHLORIDE 20 MEQ TABLET PO SCH (08:39)
[2017-10-07] MEDS: SERTRALINE 50 MG TABLET PO SCH (08:39)
[2017-10-07] MEDS: SENNA 8.6 MG TABLET PO SCH (08:39)
[2017-10-07] MEDS: PIPERACILLIN/TAZOBACTAM 3.375 GM in SODIUM CHLORIDE 0.9% MINIBAG 100 ML IV SCH ×2 (08:40→15:52)
[2017-10-07] MEDS: PRAMIPEXOLE 0.25 MG TABLET PO SCH (21:54)
[2017-10-08] MEDS: PIPERACILLIN/TAZOBACTAM 3.375 GM in SODIUM CHLORIDE 0.9% MINIBAG 100 ML IV SCH ×3 (00:30→16:50)
[2017-10-08] MEDS: SODIUM CHLORIDE FLUSH 0.9% 10 ML SYRINGE IVP SCH ×3 (06:12→20:52)
[2017-10-08] MEDS: SODIUM CHLORIDE FLUSH 0.9% 10 ML SYRINGE IVP PRN (06:12)
[2017-10-08] MEDS: SODIUM CHLORIDE 0.9% 1,000 ML IV SCH (07:34)
[2017-10-08 07:52] LABS: MAGNESIUM 1.4 mg/dL (1.7-2.8)
[2017-10-08 08:03] LABS: BASOPHILS % (AUTO) 0.3 %; EOSINOPHILS % (AUTO) 0.8 %; HCT - HEMATOCRIT 30.5 % (37.0-47.0); HGB - HEMOGLOBIN 10.3 g/dL (12.0-16.0); LYMPHOCYTES % (AUTO) 3.9 %; MEAN CORPUSCULAR HEMOGLOBIN 30.9 pg (27.0-31.0); MEAN CORPUSCULAR HGB CONC 33.9 g/dL (32.0-36.0); MEAN CORPUSCULAR VOLUME 91.2 fL (81.0-99.0); MEAN PLATELET VOLUME 8.2 fL (7.9-10.8); MONOCYTES % (AUTO) 2.2 %; NEUTROPHILS % (AUTO) 92.8 %; RED BLOOD COUNT 3.35 10^6/uL (4.20-5.40); RED CELL DISTRIBUTION WIDTH 17.7 % (12.0-15.0); UNCORRECTED WHITE BLOOD COUNT 16.7 x10^3/uL; WHITE BLOOD COUNT 16.7 x10^3/uL (4.8-10.8)
[2017-10-08 08:06] LABS: ALBUMIN/GLOBULIN RATIO 1.5 (1.0-2.2); BILIRUBIN,TOTAL 0.8 mg/dL (0.2-1.0); CALCIUM 8.2 mg/dL (8.5-10.3); POTASSIUM 3.2 mmol/L (3.5-5.0); TOTAL PROTEIN 5.3 g/dL (6.7-8.2)
[2017-10-08] MEDS: POLYETHYLENE GLYCOL 3350 17 GM PACKET PO SCH (08:06)
[2017-10-08] MEDS: DOCUSATE SODIUM 250 MG CAPSULE PO SCH (08:07)
[2017-10-08] MEDS: SENNA 8.6 MG TABLET PO SCH (08:07)
[2017-10-08] MEDS: POTASSIUM CHLORIDE 20 MEQ TABLET PO SCH ×2 (08:07→16:56)
[2017-10-08] MEDS: SERTRALINE 50 MG TABLET PO SCH (08:07)
[2017-10-08] MEDS: GABAPENTIN 300 MG CAPSULE PO SCH ×2 (08:08→20:52)
--- NOTE | 2017-10-08 08:25 | PROVIDER PROGRESS NOTE ---
Subjective - Prog Note Date Prog Note Date: 10/08/17 Prog Note Time: 08:25 - Subjective Pt reports feeling: No change Subjective: Leisa had previously been tearful regarding prognosis and her current state of health. Agreeable to increased SSRI. She denies SOB, chest pain, N/V or new cough. She continues to have little success at producing a sputum sample. Current Medications - Current Medications Current Medications: Active Medications Generic Name Dose Route Start Last Admin Trade Name Freq PRN Reason Stop Dose Admin Docusate Sodium 250 - 500 mg 10/07/17 09:00 10/08/17 08:07 Colace 250mg Capsule PO 500 mg DAILY CY Administration Gabapentin 300 mg 10/06/17 21:00 10/08/17 08:08 Neurontin PO 300 mg BID CY Administration Sodium Chloride 1,000 mls @ 100 mls/hr 10/06/17 17:00 10/08/17 07:34 Normal Saline 0.9% IV 100 mls/hr .Q10H CY Administration Piperacillin Sod/Tazobactam 100 mls @ 25 mls/hr 10/07/17 00:00 10/08/17 04:33 Sod 3.375 gm/ Sodium Chloride IV Infused Q8H CY Infusion Polyethylene Glycol 17 gm 10/07/17 09:00 10/08/17 08:06 Miralax PO 17 gm DAILY CY Administration Potassium Chloride 20 meq 10/06/17 19:00 10/08/17 08:07 K-Dur PO 20 meq DAILYWM CY Administration Pramipexole Dihydrochloride 0.125 mg 10/06/17 21:00 10/07/17 21:54 Mirapex PO 0.125 mg QPM CY Administration Senna 8.6 - 17.2 mg 10/07/17 09:00 10/08/17 08:07 Senokot PO 17.2 mg DAILY CY Administration Sertraline HCl 100 mg 10/07/17 09:00 10/08/17 08:07 Zoloft PO 100 mg DAILY CY Administration Sodium Chloride 10 ml 10/06/17 16:16 10/08/17 06:12 Normal Saline Flush 0.9% IVP 10 ml PRN PRN Administration NEEDED PER PROVIDER ORDERS Sodium Chloride 10 ml 10/06/17 22:00 10/08/17 06:12 Normal Saline Flush 0.9% IVP 10 ml Q8HR CY Administration Atorvastatin Calcium 40 mg PO QPM 06/01/13 Gabapentin 300 mg PO BID 06/01/13 Pramipexole [Mirapex] 0.125 mg PO QPM 06/01/13 Sertraline [Zoloft] 100 mg PO DAILY 06/01/13 Telmisartan [Micardis] 40 mg PO DAILY 03/23/17 Cholecalciferol [Vitamin D3] 5,000 units PO DAILY 10/06/17 Ubidecarenone [Co Q-10] 400 mg PO DAILY 10/06/17 Objective - Vital Signs/Intake & Output Reviewed Vital Signs: Yes Vital Signs: Vital Signs x48h Temp Pulse Resp BP Pulse Ox 10/08/17 05:00 37.1 C 74 16 134/47 H 92 Intake & Output: Intake & Output 10/05/17 10/06/17 10/07/17 10/08/17 23:59 23:59 23:59 23:59 Intake Total 1550 3978.333 1163.333 Output Total 400 1400 Balance 1550 3578.333 -236.667 - Objective General Appearance: positive: No acute distress, Alert ENT: positive: ENT inspection nml, Pharynx nml, No signs of dehydration Neck: positive: Nml inspection, Thyroid nml, No JVD, Trachea midline Respiratory: positive: Chest non-tender, No respiratory distress, Other ( Crackles less in bilateral low lobes.) Cardiovascular: positive: Regular rate & rhythm, No gallop, Systolic murmur Peripheral Pulses: 1+ Radial (R), 1+ Radial (L) Abdomen: positive: Non-tender, No organomegaly, Nml bowel sounds, No distention Back: positive: Nml inspection Skin: positive: Color nml, No rash, Warm, Dry, Pallor Extremities: positive: Non-tender, Full ROM, Nml appearance, No pedal edema Neurologic/Psychiatric: positive: Oriented x3, CN's nml (2-12), Motor nml, Sensation nml, Mood/affect nml - Lab Results Fish Bones: 10/08/17 07:30 10/08/17 06:14 Other Labs: Lab Results x24hrs 10/08/17 10/08/17 10/08/17 Range/Units 07:30 06:14 06:14 WBC 16.7 H (4.8-10.8) x10^3/uL RBC 3.35 L (4.20-5.40) 10^6/uL Hgb 10.3 L (12.0-16.0) g/dL Hct 30.5 L (37.0-47.0) % MCV 91.2 (81.0-99.0) fL MCH 30.9 (27.0-31.0) pg MCHC 33.9 (32.0-36.0) g/dL RDW 17.7 H (12.0-15.0) % Plt Count 106 L (130-450) 10^3/uL MPV 8.2 (7.9-10.8) fL Sodium 138 (135-145) mmol/L Potassium 3.2 L (3.5-5.0) mmol/L Chloride 104 (101-111) mmol/L Carbon Dioxide 26 (21-32) mmol/L Anion Gap 8.0 (6-13) BUN 16 (6-20) mg/dL Creatinine 1.0 (0.4-1.0) mg/dL Estimated GFR (MDRD) 53 L (>89) Glucose 87 (70-100) mg/dL Calcium 8.2 L (8.5-10.3) mg/dL Magnesium 1.4 L (1.7-2.8) mg/dL Total Bilirubin 0.8 (0.2-1.0) mg/dL AST 19 (10-42) IU/L ALT 13 (10-60) IU/L Alkaline Phosphatase 79 76 (42-121) IU/L Total Protein 5.3 L (6.7-8.2) g/dL Albumin 3.2 (3.2-5.5) g/dL Globulin 2.1 (2.1-4.2) g/dL Albumin/Globulin Ratio 1.5 (1.0-2.2) MRSA PCR negative 10/07/17. - Diagnostic Imaging Diagnostic Imaging Results: positive: Final report reviewed Assessment/Plan - Problem List (1) Syncope Impression: Patient had a fall at home prior to admission when she struck her head on the floor and bruised her right elbow. Plan: Cardiac work up including troponins that were negative, carotid US that showed no stenosis, and laboratory monitoring. Qualifiers: Syncope type: unspecified Qualified Code(s): R55 - Syncope and collapse (2) Lung cancer Impression: Patient currently receives treatment at [facility], but wishes to transfer care to our [facility] [place] since she lives close by in [place]. Plan: Continued care. Plans to transfer care to our [facility] [place], which will be easily transitioned due to a matter of just changing providers. 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 She had an uncomplicated recovery and no problems since. Plan: The goal remains to keep patient free from infection and to make the most use of her lung space with RT devices IS and flutter valve. (4) Dizziness and giddiness Impression: Patient continues to complaint of lightheadedness usually when getting up to fast. Plan: Prevention of syncopal episodes. Patient will maintain adequate fluid intake by increasing PO intake. (5) Pneumonia Impression: Patient is being treated for pneumonia based on CT scan results and clinical state. Plan: Continue IV therapy and will change to PO upon discharge. Encourage I.S use and supplemental oxygen when needed. Qualifiers: Pneumonia type: due to unspecified organism Laterality: bilateral Lung location: lower lobe of lung Qualified Code(s): J18.9 - Pneumonia, unspecified organism (6) Major depressive disorder with single episode Impression: Patient was found tearful and on the phone to . She feels hopeless while being in the hospital and wants to go home. Plan: Zoloft was increased from 100mg to 150mg today and we will continue to monitor mood. (7) Anxiety disorder Impression: Patient did not display overt signs of anxiety, but with depression and Lung CA diagnosis increased anxiety is likely.
[2017-10-08] MEDS ORDERED: POTASSIUM CHLORIDE 20 MEQ TABLET PO SCH (08:26)
[2017-10-08] MEDS ORDERED: MAGNESIUM CITRATE 296 ML BOTTLE PO PRN (08:28)
[2017-10-08 08:30] LABS: BAND NEUTROPHILS % (MANUAL) 6 %; EOSINOPHILS % (MANUAL) 1 %; LYMPHOCYTES % (MANUAL) 4 %; NEUTROPHILS % (MANUAL) 88 %; TOTAL CELLS COUNTED 100
[2017-10-08 08:32] LABS: NP AUTO DIFFERENTIAL? YES; NP MAN DIFFERENTIAL? NO; PLATELET ESTIMATE, MANUAL DECREASED (<130,000) (NORMAL); PLATELET MORPHOLOGY NORMAL APPEARANCE (NORMAL); WBC MORPHOLOGY (MULTIPLE) NORMAL APPEARANCE (NORMAL)
[2017-10-08] MEDS ORDERED: SERTRALINE 50 MG TABLET PO ONE (09:30)
[2017-10-08] MEDS: MAGNESIUM OXIDE 400 MG TABLET PO SCH (12:31)
[2017-10-08] MEDS ORDERED: ONDANSETRON 4 MG/2 ML VIAL IVP PRN (12:38)
[2017-10-08 16:21] LABS: BILIRUBIN,URINE NEGATIVE (NEGATIVE)
[2017-10-08 16:28] LABS: UR CULTURE IF IND NOT INDICATED; WBC,URINE 0-3 /HPF (0-5)
[2017-10-08] MEDS: PRAMIPEXOLE 0.25 MG TABLET PO SCH (20:52)
[2017-10-09] MEDS: PIPERACILLIN/TAZOBACTAM 3.375 GM in SODIUM CHLORIDE 0.9% MINIBAG 100 ML IV SCH ×2 (00:33→08:50)
[2017-10-09] MEDS: SODIUM CHLORIDE FLUSH 0.9% 10 ML SYRINGE IVP PRN ×2 (00:34→09:32)
[2017-10-09] MEDS: SODIUM CHLORIDE FLUSH 0.9% 10 ML SYRINGE IVP SCH ×2 (06:49→14:28)
[2017-10-09] MEDS: GABAPENTIN 300 MG CAPSULE PO SCH (08:44)
[2017-10-09] MEDS: MAGNESIUM OXIDE 400 MG TABLET PO SCH (08:45)
[2017-10-09] MEDS: POTASSIUM CHLORIDE 20 MEQ TABLET PO SCH (08:45)
[2017-10-09] MEDS: DOCUSATE SODIUM 250 MG CAPSULE PO SCH (08:48)
[2017-10-09] MEDS: SENNA 8.6 MG TABLET PO SCH (08:48)
[2017-10-09] MEDS ORDERED: SERTRALINE 50 MG TABLET PO SCH (09:00)
--- NOTE | 2017-10-09 11:55 | DISCHARGE SUMMARY ---
Discharge Summary Admit Date: 10/06/17 Discharge Date: 10/09/17 Discharging Provider: CHELSEA Smith Code Status: Attempt Resuscitation Condition at Discharge: Good Discharge Disposition: 01 Home, Self Care - DIAGNOSES Admission Diagnoses: Syncope and collapse Lung cancer Status post partial right Lobectomy Dizziness Pneumonia Discharge Diagnoses with Status of Each Condition: Syncope and collapse (R55) Lung cancer (C34.90) Status post partial lobectomy of lung (Z90.2) Dizziness (R42) Pneumonia (J18.9) Depression (F32.9) Anxiety (F41.9) - HPI History of Present Illness: Leisa Grullon is an 82 year old with a past medical history of HTN, hyperlipidemia, GERD, heart murmur, depression, anxiety, osteoarthritis, RA and lung CA since 2016- now status post lobectomy, who came to the ED today after a syncopal episode. Patient is currently undergoing chemotherapy. She finished her third infusion on Tuesday and starting that day she has been profoundly dizzy. Last night in the middle the night she was on her way to get a drink of water and had a syncopal episode in the kitchen. She hit her head on the floor and also injured her right elbow. She has noted right-sided anterior chest pain with deep breathing since that episode. Is not associated with increased dyspnea or cough. She denies any pedal edema or calf pain. She has not been anemic with the chemotherapy but has had some issues with leukopenia. Plan to admit to hospitalist service for further work up of pneumonia, syncope and collapse and coordination of care with Oncology. - ALLERGIES Allergies/Adverse Reactions: Allergies Allergy/AdvReac Type Severity Reaction Status Date / Time niacin AdvReac Severe Itching Verified 06/01/13 13:11 - MEDICATIONS Home Medications: Ambulatory Orders Medication Instructions Recorded Confirmed Atorvastatin Calcium 40 mg PO QPM 06/01/13 10/06/17 Gabapentin 300 mg PO BID 06/01/13 10/06/17 Pramipexole [Mirapex] 0.125 mg PO QPM 06/01/13 10/06/17 Telmisartan [Micardis] 40 mg PO DAILY 03/23/17 10/06/17 Cholecalciferol [Vitamin D3] 5,000 units PO DAILY 10/06/17 10/06/17 Ubidecarenone [Co Q-10] 400 mg PO DAILY 10/06/17 10/06/17 ALPRAZolam [Alprazolam] 0.25 mg PO Q4HR PRN #30 tablet 10/09/17 Azithromycin [Zithromax] 500 mg PO DAILY #7 tablet 10/09/17 Dronabinol [Marinol] 2.5 mg PO BIDAC #30 capsule 10/09/17 Polyethylene Glycol 3350 [Miralax] 17 gm PO DAILY packet 10/09/17 Potassium Chloride [K-Dur] 20 meq PO BIDWM #30 tablet 10/09/17 Sertraline [Zoloft] 150 mg PO DAILY #30 tablet 10/09/17 - PHYSICAL EXAM AT DISCHARGE General Appearance: positive: No acute distress, Alert Eyes Bilateral: positive: Normal inspection, PERRL ENT: positive: ENT inspection nml, Pharynx nml, No signs of dehydration Neck: positive: Nml inspection, Thyroid nml, No JVD, Trachea midline Respiratory: positive: Chest non-tender, No respiratory distress, Other ( crackles in right lower lobe, unchanged from previous.) Cardiovascular: positive: Regular rate & rhythm, No gallop, Systolic murmur Peripheral Pulses: positive: 2+ Abdomen: positive: Non-tender, No organomegaly, Nml bowel sounds, No distention Back: positive: Nml inspection Skin: positive: Color nml, No rash, Warm, Dry Extremities: positive: Non-tender, Full ROM, Nml appearance, No pedal edema Neurologic/Psychiatric: positive: Oriented x3, CN's nml (2-12), Motor nml, Sensation nml, Mood/affect nml - LABS Result Diagrams: 10/08/17 07:30 10/08/17 06:14 - DIAGNOSTIC IMAGING Diagnostic Imaging Results: Final report reviewed - FOLLOW UP Follow Up: A CT of your lungs at the time of your admission revealed diffuse interstitial lung disease with low lung volume, which could also be the result of chronic hypersensitivity pneumonitis, viral pneumonia, or eosinophilic pneumonia. This means that due to lung cancer, your lungs are will likely have permanent changes and this makes you at a higher risk of re-infections. Things you can do to maintain healthy lungs are: Use an incentive spirometer, use your home oxygen at the first sign of having not enough air (for many people this is a cough or faster breathing), and stay far away from those people who have a cough /cold/flu or sickness. Anorexia (the medical name for poor appetite): I have prescribed Marinol that you should take scheduled at first (twice per day ), then as needed. This can also help with preventing nausea. Also, a new medication called alprazolam or xanax is indicated for chemotherapy related nausea. This can help take off the edge and is a very low dose to not cause you harm. Depression and anxiety: I have increased the amount of zoloft to 150mg per day. This may take up to 2 weeks to notice the full benefit, but you are going through alot and I want you to cope well. I would also recommend that you see a psychologist for overall coping with your depression and your cancer diagnosis. [facility] would be happy to allow you to come there, just call your oncology clinic on Tuesday for this easy transition request. Your current oncologist has partners who come to the [facility] clinic. Dizziness: Continue to stay hydrated. I suspect the Marinol will help with being able to stomach this, in addition to the xanax. Please see your PCP in the next few days since we have been watching your electrolytes (potassium and magnesium). She may need to discontinue your potassium and/or add magnesium. This appointment will be a follow up to this hospitalization. - TIME SPENT Time Spent in Discharge (Minutes): 90
--- NOTE | 2017-10-09 11:55 | Discharge Plan ---
Discharge Plan Disposition: Home, Self Care Condition: Good Prescriptions: ALPRAZolam [Alprazolam] 0.25 mg PO Q4HR PRN #30 tablet PRN Reason: Nausea / Vomiting Azithromycin [Zithromax] 500 mg PO DAILY #7 tablet Dronabinol [Marinol] 2.5 mg PO BIDAC #30 capsule Potassium Chloride [K-Dur] 20 meq PO BIDWM #30 tablet Sertraline [Zoloft] 150 mg PO DAILY #30 tablet Diet: Regular Activity Restrictions: No Restrictions Shower Restrictions: No Driving Restrictions: No Weight Bearing: Full Weight Instruction Topics: Dronabinol THC capsules, Syncope, Syncope Causes, Pneumonia Dc Additional Instructions or Follow Up instructions: A CT of your lungs at the time of your admission revealed diffuse interstitial lung disease with low lung volume, which could also be the result of chronic hypersensitivity pneumonitis, viral pneumonia, or eosinophilic pneumonia. This means that due to lung cancer, your lungs are will likely have permanent changes and this makes you at a higher risk of re-infections. Things you can do to maintain healthy lungs are: Use an incentive spirometer, use your home oxygen at the first sign of having not enough air (for many people this is a cough or faster breathing), and stay far away from those people who have a cough /cold/flu or sickness. Anorexia (the medical name for poor appetite): I have prescribed Marinol that you should take scheduled at first (twice per day ), then as needed. This can also help with preventing nausea. Also, a new medication called alprazolam or xanax is indicated for chemotherapy related nausea. This can help take off the edge and is a very low dose to not cause you harm. Depression and anxiety: I have increased the amount of zoloft to 150mg per day. This may take up to 2 weeks to notice the full benefit, but you are going through alot and I want you to cope well. I would also recommend that you see a psychologist for overall coping with your depression and your cancer diagnosis. [facility] would be happy to allow you to come there, just call your oncology clinic on Tuesday for this easy transition request. Your current oncologist has partners who come to the [facility] clinic. Dizziness: Continue to stay hydrated. I suspect the Marinol will help with being able to stomach this, in addition to the xanax. Please see your PCP in the next few days since we have been watching your electrolytes (potassium and magnesium). She may need to discontinue your potassium and/or add magnesium. This appointment will be a follow up to this hospitalization. Take care and I really enjoyed taking care of you! Follow-Up Care: [facility] (Oncology. [place] [facility] [place] No Smoking: If you smoke, Please STOP! Call for help. Follow-up with: KOTA RAPP MD [Primary Care Provider] -
[2017-10-09] MEDS ORDERED: ALPRAZolam 0.25 MG TABLET PO PRN (14:40)
[2017-10-09 15:41] VITALS: BP 116/92
[2017-10-09] MEDS ORDERED: AZITHROMYCIN 250 MG TABLET PO SCH (16:00)
[2017-10-09] MEDS ORDERED: DRONABINOL 2.5 MG CAPSULE PO SCH (16:00)
[2017-10-09] MEDS ORDERED: POTASSIUM CHLORIDE 20 MEQ TABLET PO SCH (17:00)
== END 2017-10-09 15:50 | disposition home or self-care (01) | DRG 194 ==
LOC: ED 12:22 → MS2 16:16
PROVIDERS: ADMIT Nurse Practitioner; ATTEND Nurse Practitioner
DX: R09.02 Hypoxemia (principal); J18.9 Pneumonia, unspecified organism; D72.829 Elevated white blood cell count, unspecified; R07.2 Precordial pain; C34.32 Malignant neoplasm of lower lobe, left bronchus or lung; R55 Syncope and collapse; R42 Dizziness and giddiness; S09.8XXA Other specified injuries of head, initial encounter; S50.01XA Contusion of right elbow, initial encounter; W18.39XA Other fall on same level, initial encounter; Z90.2 Acquired absence of lung [part of]; F32.9 Major depressive disorder, single episode, unspecified; E78.00 Pure hypercholesterolemia, unspecified; F41.9 Anxiety disorder, unspecified; I10 Essential (primary) hypertension; R63.0 Anorexia; Z68.29 Body mass index [BMI] 29.0-29.9, adult; T45.1X5A Adverse effect of antineoplastic and immunosuppressive drugs, initial encounter; R11.0 Nausea; E78.5 Hyperlipidemia, unspecified; K21.9 Gastro-esophageal reflux disease without esophagitis; M19.90 Unspecified osteoarthritis, unspecified site; M06.9 Rheumatoid arthritis, unspecified; R01.1 Cardiac murmur, unspecified; Y92.000 Kitchen of unspecified non-institutional (private) residence as the place of occurrence of the external cause; Z91.81 History of falling; Z79.82 Long term (current) use of aspirin; Z79.899 Other long term (current) drug therapy
CPT/HCPCS: 36415; 70450; 71275; 80053; 81001; 81003; 83605; 83690; 83735; 84075; 84080; 84484; 84550; 85025; 85610; 85730; 87040; 87070; 87086; 87205; 87493; 87640; 93005; 93880; 96360; 99284; 99285

== ENCOUNTER 2017-11-29 14:36 | Emergency (ER) | payer MEDICARE, OTHER ==
[2017-11-29 16:15] LABS: BASOPHILS % (AUTO) 0.9 %; EOSINOPHILS # (AUTO) 0.1 10^3/uL (0.0-0.7); HGB - HEMOGLOBIN 9.7 g/dL (12.0-16.0); LYMPHOCYTES # (AUTO) 0.6 10^3/uL (1.5-3.5); LYMPHOCYTES % (AUTO) 11.7 %; MEAN CORPUSCULAR HEMOGLOBIN 32.8 pg (27.0-31.0); MEAN CORPUSCULAR VOLUME 96.3 fL (81.0-99.0); MEAN PLATELET VOLUME 7.6 fL (7.9-10.8); MONOCYTES # (AUTO) 0.8 10^3/uL (0.0-1.0); MONOCYTES % (AUTO) 15.8 %; NEUTROPHILS # (AUTO) 3.6 10^3/uL (1.5-6.6); NEUTROPHILS % (AUTO) 70.6 %; PLT - PLATELET COUNT 193 10^3/uL (130-450); RED BLOOD COUNT 2.96 10^6/uL (4.20-5.40); WHITE BLOOD COUNT 5.1 x10^3/uL (4.8-10.8)
[2017-11-29 16:27] LABS: ALBUMIN/GLOBULIN RATIO 1.2 (1.0-2.2); BILIRUBIN,TOTAL 0.7 mg/dL (0.2-1.0); CALCIUM 9.4 mg/dL (8.5-10.3); TOTAL PROTEIN 7.3 g/dL (6.7-8.2)
[2017-11-29] MEDS ORDERED: SODIUM CHLORIDE 0.9% 1,000 ML IV ONE ×2 (17:21→17:37)
[2017-11-29] MEDS ORDERED: LORazepam 2 MG/ML VIAL IVP STA (17:37)
--- NOTE | 2017-11-29 17:39 | ED Physician Documentation ---
History of Present Illness - Stated complaint Stated Complaint: SOA,HEADACHE,DIZZY,NAUSEA - Chief complaint Chief Complaint: Neuro - History obtained from History obtained from: Patient, Family - History of Present Illness Timing: How many weeks ago (12) Pain level max: 0 Pain level now: 0 Improved by: rest Worsened by: walking, standing - Additonal information Additional information: Patient is an 82-year-old female with a history of lung cancer that is status post lobectomy in May of this last year. She has been undergoing chemotherapy feeling progressively weak, lightheaded with standing and short of breath. States she had a chest x-ray before , does not know the results. Family states that she is unable to walk without feeling extremely dizzy and they are concerned that she may fall and hurt herself. She has fallen at home, but sustained no injuries. Has not hit her head. Does not have any focal neurological deficits. Has not been vomiting. States she drinks a lot of water. Review of Systems Ten Systems: 10 systems reviewed and negative Constitutional: denies: Fever, Chills Eyes: denies: Decreased vision Ears: denies: Ear pain Nose: denies: Rhinorrhea / runny nose, Congestion Throat: denies: Sore throat Cardiac: denies: Chest pain / pressure Respiratory: reports: Dyspnea, Cough (mild). denies: Hemoptysis, Wheezing GI: denies: Abdominal Pain, Nausea, Vomiting, Diarrhea : denies: Dysuria Skin: denies: Rash Musculoskeletal: denies: Neck pain, Back pain Neurologic: reports: Generalized weakness. denies: Syncope, Seizure, Confused, Altered mental status, Headache, Head injury PD PAST MEDICAL HISTORY - Past Medical History Cardiovascular: Hypertension, High cholesterol, Murmur Respiratory: None Neuro: None Endocrine/Autoimmune: None GI: GERD : None HEENT: None Psych: None, Depression, Anxiety Musculoskeletal: Osteoarthritis, Rheumatoid arthritis Derm: None - Past Surgical History Past Surgical History: Yes General: Cholecystectomy, Hiatal hernia repair, Colonoscopy Ortho: Knee replacement, Spine surgery, Other HEENT: Cataracts, Tonsil/Adenoidectomy - Present Medications Home Medications: Ambulatory Orders Medication Instructions Recorded Confirmed Atorvastatin Calcium 40 mg PO QPM 06/01/13 11/29/17 Gabapentin 300 mg PO BID 06/01/13 11/29/17 Pramipexole [Mirapex] 0.125 mg PO QPM 06/01/13 11/29/17 Telmisartan [Micardis] 40 mg PO DAILY 03/23/17 11/29/17 Cholecalciferol [Vitamin D3] 5,000 units PO DAILY 10/06/17 11/29/17 Ubidecarenone [Co Q-10] 400 mg PO DAILY 10/06/17 11/29/17 ALPRAZolam [Alprazolam] 0.25 mg PO Q4HR PRN #30 tablet 10/09/17 11/29/17 Azithromycin [Zithromax] 500 mg PO DAILY #7 tablet 10/09/17 11/29/17 Dronabinol [Marinol] 2.5 mg PO BIDAC #30 capsule 10/09/17 11/29/17 Polyethylene Glycol 3350 [Miralax] 17 gm PO DAILY packet 10/09/17 11/29/17 Potassium Chloride [K-Dur] 20 meq PO BIDWM #30 tablet 10/09/17 11/29/17 Sertraline [Zoloft] 150 mg PO DAILY #30 tablet 10/09/17 11/29/17 Albuterol Sulf [Ventolin Hfa 2 puffs INH Q4HR PRN #1 inhaler 11/29/17 Inhaler] LORazepam [Ativan] 0.5 mg PO Q6H PRN #10 tablet 11/29/17 predniSONE [Prednisone] 20 mg PO DAILY #7 tablet 11/29/17 - Allergies Allergies/Adverse Reactions: Allergies Allergy/AdvReac Type Severity Reaction Status Date / Time niacin AdvReac Severe Itching Verified 06/01/13 13:11 - Social History Does the pt smoke?: No Smoking Status: Never smoker Does the pt drink ETOH?: No Does the pt have substance abuse?: No - Immunizations Immunizations are current?: Yes - POLST Patient has POLST: No POLST Status: Full Code PD ED PE NORMAL - Vitals Vital signs reviewed: Yes - General General: Alert and oriented X 3, No acute distress, Well developed/nourished - HEENT HEENT: PERRL, Ears normal, Moist mucous membranes, Pharynx benign - Neck Neck: Supple, no meningeal sign - Cardiac Cardiac: RRR, Strong equal pulses - Respiratory Respiratory: No respiratory distress, Other (diminished BS bilaterally.) - Abdomen Abdomen: Soft, Non tender, Non distended - Derm Derm: Warm and dry - Extremities Extremities: No edema - Neuro Neuro: Alert and oriented X 3 - Psych Psych: Other (very anxious) Results - Vitals Vitals: Vital Signs - 24 hr 11/29/17 11/29/17 11/29/17 14:55 17:23 18:56 Temperature 36.3 C L 36.4 C L Heart Rate 74 71 Heart Rate [ 74 Sitting] Heart Rate [ 84 Standing] Heart Rate [ 70 Supine] Respiratory 18 18 Rate Blood Pressure 97/78 139/67 H Blood Pressure 141/63 H [Sitting] Blood Pressure 128/64 [Standing] Blood Pressure 140/60 H [Supine] O2 Saturation 91 L 87 L 11/29/17 11/29/17 11/29/17 18:58 19:46 20:56 Temperature Heart Rate 70 72 101 H Heart Rate [ Sitting] Heart Rate [ Standing] Heart Rate [ Supine] Respiratory 35 H 18 18 Rate Blood Pressure 140/60 H 142/50 H Blood Pressure [Sitting] Blood Pressure [Standing] Blood Pressure [Supine] O2 Saturation 93 99 11/29/17 21:05 Temperature Heart Rate 77 Heart Rate [ Sitting] Heart Rate [ Standing] Heart Rate [ Supine] Respiratory 18 Rate Blood Pressure 131/49 H Blood Pressure [Sitting] Blood Pressure [Standing] Blood Pressure [Supine] O2 Saturation 96 Oxygen O2 Source Nasal cannula Oxygen Flow Rate 4 - Labs Labs: Laboratory Tests 11/29/17 11/29/17 11/29/17 16:10 16:10 19:45 WBC 5.1 RBC 2.96 L Hgb 9.7 L Hct 28.5 L MCV 96.3 MCH 32.8 H MCHC 34.0 RDW 18.0 H Plt Count 193 MPV 7.6 L Neut # 3.6 Lymph # 0.6 L [place] # 0.8 Eos # 0.1 Baso # 0.0 Absolute Nucleated RBC 0.00 Nucleated RBC % 0.0 Sodium 137 Potassium 3.4 L Chloride 100 L Carbon Dioxide 26 Anion Gap 11.0 BUN 17 Creatinine 1.0 Estimated GFR (MDRD) 53 L Glucose 104 H Calcium 9.4 Total Bilirubin 0.7 AST 26 ALT 12 Alkaline Phosphatase 65 Total Protein 7.3 Albumin 4.0 Globulin 3.3 Albumin/Globulin Ratio 1.2 Lipase 14 L Urine Color YELLOW Urine Clarity HAZY Urine pH 6.5 Ur Specific [place] 1.010 Urine Protein NEGATIVE Urine Glucose (UA) NEGATIVE Urine Ketones NEGATIVE Urine Occult Blood SMALL H Urine Nitrite NEGATIVE Urine Bilirubin NEGATIVE Urine Urobilinogen 0.2 (NORMAL) Ur Leukocyte Esterase NEGATIVE Urine RBC 0-5 Urine WBC 4-5 Ur Squamous Epith Cells MOD Squamous H Urine Bacteria None Seen Ur Microscopic Review INDICATED Urine Culture Comments NOT INDICATED - Rads (name of study) CT PA Radiology: Prelim report reviewed, EMP read contemporaneously, See rad report ( No evidence of acute pulmonary embolism through the proximal to mid segmental branch level. 2. There is peripheral reticular and groundglass opacity with traction bronchiectasis. This is consistent with fibrosis, possibly UIP, NSIP, or hypersensitivity neumonitis. 3. Peripheral groundglass opacity is increased as compared to the previous examination. Differential considerations include acute exacerbation of UIP, pneumonia, or edema. 4. There is no evidence of thoracic aortic dissection. ) PD MEDICAL DECISION MAKING - ED course Complexity details: reviewed old records, reviewed results, re-evaluated patient , considered differential, d/w patient, d/w family ED course: Patient is an 82-year-old female who presents to the emergency department what appears to be anxiety as well as possible pulmonary fibrosis. She feels better after Ativan, IV fluids and DuoNeb treatment. She is able to ambulate quite well with a walker. She does hyperventilate quite often and become tachypneic. She is reminded to breathe slowly and her dizziness seems to go away. She also normally utilizes oxygen at home, but stated that she did not need this anymore. She is hypoxic here with ambulation, spoke with respiratory therapy, Sarah, who states that we are unable to provide oxygen for patient's at home anymore even from the inpatient side and that it needs to go through their primary care provider due to Medicare changes. The patient is counseled to call her primary care provider first thing in the morning to have her oxygen reinstituted at home. We will also start her on steroids for pulmonary fibrosis. We will also prescribe an inhaler for her as well as Ativan for anxiety. Patient and family counseled regarding signs and symptoms for which I believe and urgent re-evaluation would be necessary. Patient with good understanding of and agreement to plan and is comfortable going home at this time This document was made in part using voice recognition software. While efforts are made to proofread this document, sound alike and grammatical errors may occur. Departure - Departure Disposition: 01 Home, Self Care Clinical Impression: Pulmonary fibrosis, Hypoxia, Anxiety Condition: Good Instructions: Pulmonary Fibrosis, ED Hyperventilation Syndrome Follow-Up: KOTA RAPP MD [Primary Care Provider] - Tomorrow Prescriptions: Albuterol Sulf [Ventolin Hfa Inhaler] 2 puffs INH Q4HR PRN #1 inhaler PRN Reason: Wheezing LORazepam [Ativan] 0.5 mg PO Q6H PRN #10 tablet PRN Reason: Anxiety predniSONE [Prednisone] 20 mg PO DAILY #7 tablet Comments: Please call your doctor first thing in the morning to be restarted on your oxygen as soon as possible. You also need an urgent referral to a jewel waxer as it appears you have pulmonary fibrosis on your CT scan today. Return if you worsen. Use your walker at home all the time. Discharge Date/Time: 11/29/17 21:56
[2017-11-29] MEDS ORDERED: IOPAMIDOL-300 100 ML VIAL ONE (17:51)
[2017-11-29] MEDS ORDERED: IOPAMIDOL-300 100 ML VIAL IVP ONE (18:30)
--- NOTE | 2017-11-29 19:10 | CT Report ---
EXAM: CT ANGIOGRAM CHEST EXAM DATE: 11/29/2017 06:33 PM. CLINICAL HISTORY: Shortness of breath, lung ca. COMPARISON: 10/06/2017. TECHNIQUE: Routine helical imaging was performed through the chest in the pulmonary arterial phase. I V Contrast: 80 cc Isovue 300. Reconstructions: Coronal 3-D MIP reconstructions.Sagittal and coronal. In accordance with CT protocol optimization, one or more of the following dose reduction techniques w ere utilized for this exam: automated exposure control, adjustment of mA and/or KV based on patient s ize, or use of iterative reconstructive technique. FINDINGS: Pulmonary Arteries: Diagnostic quality: Adequate through the proximal to mid segmental arteries. Respiratory motion artif act obscures portions of distal vessels. No evidence for acute or chronic pulmonary emboli. RV/LV is within normal limits. There is no interventricular septal bowing. There is no reflux of cont rast material in the IVC. Lungs/Pleura: There is subpleural reticulation with peripheral groundglass opacity in the lungs. Ther e is traction bronchiectasis. No evidence of pleural effusion. No pneumothorax. Mediastinum: There is increased transverse diameter of the heart. There are subcentimeter mediastinal lymph nodes. No enlarged axillary or supraclavicular lymph nodes. Thoracic Aorta: There is no evidence of thoracic aortic dissection or aneurysm. Upper Abdomen: Unremarkable. Other: None. IMPRESSION: 1. No evidence of acute pulmonary embolism through the proximal to mid segmental branch level. 2. There is peripheral reticular and groundglass opacity with traction bronchiectasis. This is consis tent with fibrosis, possibly UIP, NSIP, or hypersensitivity pneumonitis. 3. Peripheral groundglass opacity is increased as compared to the previous examination. Differential considerations include acute exacerbation of UIP, pneumonia, or edema. 4. There is no evidence of thoracic aortic dissection. [facility] Referring Provider Line: [phone] SITE ID: [id number]
[2017-11-29 19:53] LABS: BILIRUBIN,URINE NEGATIVE (NEGATIVE); GLUCOSE, URINE (UA) NEGATIVE (NEGATIVE); KETONES,URINE (UA) NEGATIVE (NEGATIVE); LEUKOCYTE ESTERASE, URINE NEGATIVE (NEGATIVE); NITRITE,URINE NEGATIVE (NEGATIVE); OCCULT BLOOD,URINE SMALL (NEGATIVE); PH,URINE 6.5 PH (5.0-7.5); PROTEIN,URINE NEGATIVE (NEGATIVE); UROBILINOGEN,URINE 0.2 (NORMAL) E.U./dL (NORMAL)
[2017-11-29 19:54] LABS: CLARITY,URINE HAZY (CLEAR)
[2017-11-29 20:10] LABS: BACTERIA,URINE None Seen /HPF (None Seen); RBC,URINE 0-5 /HPF (0-5); SQUAMOUS EPITHELIAL CELL,UR MOD Squamous (<= Few)
[2017-11-29] MEDS ORDERED: IPRATROPIUM/ALBUTEROL 3 ML NEB INH STA (20:25)
[2017-11-29 21:06] VITALS: BP 131/49
[2017-11-29] MEDS ORDERED: predniSONE 20 MG TABLET PO STA (21:30)
== END 2017-11-29 21:56 | disposition home or self-care (01) ==
LOC: ED 14:36
DX: J84.10 Pulmonary fibrosis, unspecified (principal); R09.02 Hypoxemia; F41.9 Anxiety disorder, unspecified; C34.90 Malignant neoplasm of unspecified part of unspecified bronchus or lung; I10 Essential (primary) hypertension; M06.9 Rheumatoid arthritis, unspecified
CPT/HCPCS: 36415; 71275; 80053; 81001; 83690; 85025; 94640; 96361; 96374; 99284; 99285; J2060; J7512; J7620; Q9967; 81003; 87086

== ENCOUNTER 2017-12-02 20:47 | Outpatient (CLI) | payer MEDICARE, OTHER | END 2017-12-02 20:48 | disposition short-term general hospital (02) | LOC: EMS 20:47 | PROVIDERS: ATTEND Surgery | DX: R06.00 Dyspnea, unspecified (principal) | CPT/HCPCS: A0425; A0427 ==